=== PATIENT | female | born 1965 | race Caucasian/White ===

== ENCOUNTER 2016-11-03 16:39 | Outpatient (CLI) ==
[2016-11-03] MEDS ORDERED: TORADOL IM STA (16:46)
[2016-11-03] MEDS ORDERED: NORFLEX IM STA (16:46)
[2016-11-03 16:54] VITALS: BP 146/80; TEMP 98.1
== END 2016-11-03 17:12 | disposition home or self-care (01) ==
LOC: OPMED 16:39
PROVIDERS: ATTEND Family Medicine
DX: G43.909 Migraine, unspecified, not intractable, without status migrainosus (principal)
CPT/HCPCS: 96372

== ENCOUNTER 2017-02-09 02:35 | Emergency (ER) ==
[2017-02-09 02:41] VITALS: BP 134/81; TEMP 97.7; BMI 26.5
[2017-02-09] MEDS ORDERED: IMITREX SUBCUT STA (03:06)
[2017-02-09] MEDS ORDERED: ZOFRAN ODT PO STA (03:06)
[2017-02-09] MEDS ORDERED: TORADOL IM STA (03:06)
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
== END 2017-02-09 03:40 | disposition home or self-care (01) ==
LOC: ED 02:35
DX: G43.909 Migraine, unspecified, not intractable, without status migrainosus (principal); F17.210 Nicotine dependence, cigarettes, uncomplicated
CPT/HCPCS: 96372; 99282